=== PATIENT | male | born 1960 | race Caucasian/White ===

== ENCOUNTER 2022-04-10 19:06 | Emergency (ER) | payer SELFPAY ==
[2022-04-10 19:13] VITALS: BP 116/80; PULSE 104; RESP 20; TEMP 36.7; O2SAT 100; BMI 20.9
--- NOTE | 2022-04-10 19:19 | ECG_ITS ---
[facility] Test Date: 2022-04-10 Pat Name: Chandana Live Department: Room: Gender: Male Radio Director: : 1960 Requested By: Mac Madison Order Number: [id number] Vamshi MD: Priscila Taylor M.D. Measurements Intervals [place] Rate: 115 P: 80 HI: 140 QRS: 59 QRSD: 85 T: 68 QT: 331 QTc: 459 Interpretive Statements SINUS TACHYCARDIA RIGHT ATRIAL ENLARGEMENT [0.3mV P-WAVE] LEFT ATRIAL ENLARGEMENT [-0.15mV P-WAVE IN V1/V2] INTERPRETATION BASED ON A DEFAULT AGE OF 40 YEARS No previous ECG available for comparison Electronically Signed On 04-11-2022 21:19:15 CDT by Priscila Taylor M.D. [id number]
--- NOTE | 2022-04-10 19:20 | XRR_ITS ---
PROCEDURE INFORMATION: Exam: XR Chest Exam date and time: 04/10/2022 7:25 PM Age: 61 years old Clinical indication: Pain; Chest pressure; Additional info: Epigastric pain TECHNIQUE: Imaging protocol: Radiologic exam of the chest. Views: 1 view. COMPARISON: No relevant prior studies available. FINDINGS: Lungs: Unremarkable. No consolidation. Pleural spaces: Unremarkable. No pleural effusion. No pneumothorax. Heart/Mediastinum: Unremarkable. No cardiomegaly. Bones/joints: Unremarkable. XR/XR chest 1V portable [id number] IMPRESSION: No acute findings.
--- NOTE | 2022-04-10 19:35 | CTR_ITS ---
PROCEDURE INFORMATION: Exam: CT Abdomen And Pelvis With Contrast Exam date and time: 04/10/2022 7:50 PM Age: 61 years old Clinical indication: Abdominal pain; Epigastric; Additional info: Epigastric pain TECHNIQUE: Imaging protocol: Computed tomography of the abdomen and pelvis with contrast. Radiation optimization: All CT scans at this facility use at least one of these dose optimization techniques: automated exposure control; mA and/or kV adjustment per patient size (includes targeted exams where dose is matched to clinical indication); or iterative reconstruction. Contrast material: OMNI 350; Contrast volume: 100 ml; Contrast route: INTRAVENOUS (IV); COMPARISON: CR (CHEST, ) 04/10/2022 7:25 PM RADIATION DOSE METRICS: Total DLP (mGy-cm): 362.53 FINDINGS: Mediastinal space: Distal esophageal wall thickening suspected perhaps reflecting an esophagitis. Liver: Normal. No mass. Gallbladder and bile ducts: Normal. No calcified stones. No ductal dilation. Pancreas: Normal. No ductal dilation. Spleen: Normal. No splenomegaly. Adrenal glands: Normal. No mass. Kidneys and ureters: Normal. No hydronephrosis. Stomach and bowel: Mildly prominent fluid in the small bowel without dilation may reflect an enteritis. Appendix: No evidence of appendicitis. Intraperitoneal space: Unremarkable. No free air. No significant fluid collection. Vasculature: Unremarkable. No abdominal aortic aneurysm. Lymph nodes: Unremarkable. No enlarged lymph nodes. Urinary bladder: Unremarkable as visualized. Reproductive: Unremarkable as visualized. Bones/joints: Unremarkable. No acute fracture. Soft tissues: Unremarkable. CT/CT abdomen pelvis w con* [id number] IMPRESSION: 1. Distal esophageal wall thickening suspected perhaps reflecting an esophagitis. 2. Mildly prominent fluid in the small bowel without dilation may reflect an enteritis.
[2022-04-10] MEDS: lidocaine 2% viscous 15 ML, aluminum-mag hydrox-simethicon 30 ML, sucralfate oral liq 1 GM PO (19:44)
[2022-04-10] MEDS: iohexol 350 mg/mL 100 mL Btl IV (19:56)
[2022-04-10] MEDS: sodium chloride 0.9% 1,000 ML 999 ML IV (20:04)
[2022-04-10] MEDS: ondansetron 2 mg/ML SDV 2 mL 4 MG IVP ×2 (20:04→22:02)
[2022-04-10 20:15] LABS: Basophils % 0.4 %; Eosinophils # 0.1 10^3/uL (0.0-0.8); Eosinophils % 0.5 %; Hematocrit 51.4 % (42.0-52.0); Hemoglobin 16.6 g/dL (11.7-16.6); Lymphocytes # 1.8 10^3/uL (0.8-4.8); Lymphocytes % 18.4 %; Mean Corpuscular HGB Conc 32.3 g/dL (30.0-36.0); Mean Corpuscular Hemoglobin 29.6 pg (28.0-34.0); Mean Corpuscular Volume 91.6 fl (80-94); Monocytes # 0.6 10^3/uL (0.2-0.9); Monocytes % 6.1 %; Neutrophils # 7.27 10^3/uL (1.8-7.7); Neutrophils % 74.3 %; Nucleated Red Blood Cells % 0 %; Platelet Count 376 10^3/cmm (130-400); Red Blood Count 5.61 10^6/uL (4.1-5.3); Red Cell Distribution Width 12.5 % (12.1-15.1); White Blood Count 9.8 10^3/uL (4.0-10.0)
[2022-04-10 20:19] VITALS: BP 156/88; PULSE 102; RESP 18
[2022-04-10 20:26] VITALS: RESP 20
[2022-04-10] MEDS: morphine 4 mg/mL SDV 1 mL IVP ×2 (20:26→22:02)
--- NOTE | 2022-04-10 20:34 | W.ED.ABDPA2 ---
HPI - Abdominal Pain General: Chief Complaint: Abdominal Pain Stated Complaint: Cp, N/V Time Seen by Provider: 04/10/22 19:23 History of Present Illness: 61-year-old male with a history of gastric ulcer. He presents with 24 hours of epigastric pain, vomiting liquids, and nausea. He notes that there is burning pain in his epigastrium, that worsens and goes up into his chest when he vomits. He has no history of belly surgery. He says that he has continued to vomit even liquids for the past 24 hours or so. He says he is thirsty. He denies any fever. No diarrhea, no black stools, no blood in the vomit MD elicited complaint: abdominal pain Pertinent past history: gastritis Onset (ago): hour(s) (24) Location: Epigastric Quality: stabbing Radiation: epigastric Associated Symptoms: Reports dyspepsia, nausea, poor appetite and vomiting; Denies coffee ground emesis, diarrhea, fever(s), hematemesis and loose stools Review of Systems Const: Denies: fever(s) Eyes: Denies: change in vision ENMT: Denies: throat pain Card: Reports: chest pain (with vomiting); Denies: palpitations Resp: Denies: dyspnea, productive cough, non-productive cough or wheezing GI: Reports: nausea and vomiting; Denies: hematemesis, coffee ground emesis or diarrhea Skin/Breast: Denies: rash Neuro: Denies: headache(s), weakness in extremities, dizziness or confusion Physical Exam Const: GENERAL APPEARANCE: cooperative, anxious and ill appearing (mildly); not comfortable, not frail appearing and not well hydrated HENMT: COMMON NORMALS: normocephalic, atraumatic and Normal external nose present HEAD & SCALP: normocephalic and atraumatic FACE & SINUS: normal facial exam and face symmetric NOSE: Normal external nose present Eye: COMMON NORMALS: Equal, round and reactive pupils present and EOMs intact bilaterally PUPIL: Yes Equal, round and reactive pupils present Neck/C-Spine: GENERAL: Yes trachea midline Chest: CHEST: Yes Symmetrical chest wall rise Resp: COMMON NORMALS: normal respiratory effort, No retractions, No use of accessory muscles and clear to auscultation bilaterally AUSCULTATION: clear to auscultation bilaterally Cardio: COMMON NORMALS: regular rate and regular rhythm RATE: regular rate RHYTHM: regular rhythm GI: COMMON NORMALS: Normal to inspection, nondistended, normoactive bowel sounds present PALPATION: Yes Tenderness to palpation present (GI) (epigastric) Details: RUQ Extremity: COMMON NORMALS: no pedal edema Neuro: ROHITH COMA SCALE: document GCS findings [place] coma scale eye opening: Spontaneous Rohith coma scale verbal response: Orientated Rohith coma scale motor response: Obey commands [place] coma scale total score: 15 SENSORY EXAM: Yes extremities (intact) Psych: COMMON NORMALS: speech normal SPEECH: Yes normal speech Skin: COMMON NORMALS: no rashes or lesions noted GENERAL SKIN EXAM: no rashes or lesions noted Course Vital Signs: Vital signs: Vital Signs Temperature 98.0 F 04/10/22 19:13 Pulse Rate 98 04/10/22 20:51 Respiratory Rate 12 04/10/22 20:51 Blood Pressure 145/86 04/10/22 20:51 Pulse Oximetry 100 04/10/22 19:13 Oxygen Delivery Me thod 04/10/22 20:19 MDM - Abdominal Pain Medical Decision Making Patient's symptoms are improved following administration of GI cocktail morphine and Zofran. He still having some pain. His vitals are stable. Blood pressure 145/86, pulse 98, respirations 12, saturations 100% on room air. Temperature is 98.0. CBC is normal. B UN is very slightly elevated. Otherwise BMP is not remarkable. Urinalysis is not remarkable. Liver enzymes are normal. Lipase is normal at 45. CT of the abdomen and pelvis shows distal esophageal wall thickening indicative of esophagitis consistent with the patient's symptoms. There is mild prominent fluid in the small bowel without dilatation that could be indicative of a mild enteritis. The patient was counseled on his diagnosis of esophagitis, likely the cause of his symptoms. The need for medical treatment and compliance was stressed. And the need for follow-up, possibly with surgery for EGD was stressed as well. He will be treated with proton pump inhibitors, topical treatment with Carafate, and antiemetics with a liquid diet. They know to return for worsening symptoms Lab Data : 04/10/22 19:50 04/10/22 19:50 Labs/Radiology: Radiology Impressions Chest X-Ray 04/10/22 19:20 IMPRESSION: No acute findings. Abdomen/Pelvis CT 04/10/22 19:35 IMPRESSION: 1. Distal esophageal wall thickening suspected perhaps reflecting an esophagitis. 2. Mildly prominent fluid in the small bowel without dilation may reflect an enteritis. Laboratory Results WBC 9.8 10^3/uL (4.0-10.0) 04/10/22 19:50 RBC 5.61 10^6/uL (4.1-5.3) H 04/10/22 19:50 Hgb 16.6 g/dL (11.7-16.6) 04/10/22 19:50 Hct 51.4 % (42.0-52.0) 04/10/22 19:50 MCV 91.6 fl (80-94) 04/10/22 19:50 MCH 29.6 pg (28.0-34.0) 04/10/22 19:50 MCHC 32.3 g/dL (30.0-36.0) 04/10/22 19:50 RDW 12.5 % (12.1-15.1) 04/10/22 19:50 Plt Count 376 10^3/cmm (130-400) 04/10/22 19:50 MPV 10.0 fL (7.4-10.4) 04/10/22 19:50 Neut % (Auto) 74.3 % 04/10/22 19:50 Lymph % (Auto) 18.4 % 04/10/22 19:50 [place] % (Auto) 6.1 % 04/10/22 19:50 Eos % (Auto) 0.5 % 04/10/22 19:50 Baso % (Auto) 0.4 % 04/10/22 19:50 Neut # (Auto) 7.27 10^3/uL (1.8-7.7) 04/10/22 19:50 Lymph # (Auto) 1.8 10^3/uL (0.8-4.8) 04/10/22 19:50 [place] # (Auto) 0.6 10^3/uL (0.2-0.9) 04/10/22 19:50 Eos # (Auto) 0.1 10^3/uL (0.0-0.8) 04/10/22 19:50 Baso # (Auto) 0.0 10^3/uL (0.0-0.1) 04/10/22 19:50 Nucleated RBC % (auto) 0 % 04/10/22 19:50 Nucleated RBCs # 0.0 /100WBC 04/10/22 19:50 Sodium 141 mmol/L (136-145) 04/10/22 19:50 Potassium 4.3 mmol/L (3.5-5.1) 04/10/22 19:50 Chloride 101 mmol/L (98-107) 04/10/22 19:50 Carbon Dioxide 24 mmol/L (22-29) 04/10/22 19:50 Anion Gap 20.3 (5-19) H 04/10/22 19:50 BUN 23 mg/dL (6-20) H 04/10/22 19:50 Creatinine 1.0 mg/dL (0.7-1.2) 04/10/22 19:50 GFR Calculation 76.5 mL/min (90-130) L 04/10/22 19:50 Glucose 81 mg/dL (65-115) 04/10/22 19:50 Calculated Osmolality 295 mOsm/kg (285-295) 04/10/22 19:50 Calcium 9.4 mg/dL (8.5-10.5) 04/10/22 19:50 Total Bilirubin 0.4 mg/dL (0.15-1.2) 04/10/22 19:50 AST 29 U/L (0-40) 04/10/22 19:50 ALT 29 U/L (0-41) 04/10/22 19:50 Alkaline Phosphatase 128 U/L (40-130) 04/10/22 19:50 Troponin T Gen 5 ng/L 6 ng/L (0-15) 04/10/22 19:50 Total Protein 8.3 g/dL (6.6-8.7) 04/10/22 19:50 Albumin 4.5 g/dL (3.5-5.2) 04/10/22 19:50 Globulin 3.8 g/dL (1.3-4.6) 04/10/22 19:50 Lipase 45 U/L (13-60) 04/10/22 19:50 Urine Color Yellow (Yellow) 04/10/22 20:40 Urine Appearance Clear (CLEAR) 04/10/22 20:40 Urine pH 5 (5-7) 04/10/22 20:40 Ur Specific [place] 1.025 (1.005-1.030) 04/10/22 20:40 Urine Protein 1+ (Negative) H 04/10/22 20:40 Urine Glucose (UA) Norm (Normal) 04/10/22 20:40 Urine Ketones 3+ (Negative) H 04/10/22 20:40 Urine Blood Neg (Negative) 04/10/22 20:40 Urine Nitrate Negative (Negative) 04/10/22 20:40 Urine Bilirubin Neg (Negative) 04/10/22 20:40 Urine Urobilinogen Neg mg/dL (Negative) 04/10/22 20:40 Ur Leukocyte Esterase Negative (Negative) 04/10/22 20:40 Urine RBC 0-4 /hpf (0-2) H 04/10/22 20:40 Urine WBC 0-4 /hpf (0-5) H 04/10/22 20:40 Ur Squamous Epith Cells 0-4 /hpf (0-5) H 04/10/22 20:40 Amorphous Sediment Not Reportable 04/10/22 20:40 Urine Bacteria Trace /hpf (NONE) 04/10/22 20:40 Urine Mucus 1+ /hpf 04/10/22 20:40 Discharge Plan Discharge Patient Disposition: Home Clinical Impression: Esophagitis Condition: Stable Prescriptions: New Prevacid 30 mg capsule,delayed release(DR/EC) 30 mg PO DAILY Qty: 30 0RF ondansetron 4 mg film 4 mg PO DAILY PRN (Reason: nausea and vomiting) Qty: 10 0RF sucralfate 1 gram tablet 1 g PO Q6H 28 Days Qty: 112 0RF Discharge Orders: Discharge ED (Routine); Ordered 04/10/22 Ordered By: Kai Luis Referrals: Imtiaz Anglin MD [Physician] - 7-10 days Discharge Diet: Clear Liquid Discharge Activity: Increase activity as tolerated Patient Instructions: Esophagitis (ED), Opioid Safety, Pain Management Activity Restrictions/Additional Instructions: Medication as directed. As we discussed, dissolve the sucralfate pill and water intake at least 30 minutes prior to any liquid or food intake. Use the nausea medication prescribed every 6 hours while awake for the next 24 hours, then as needed. Case management will set up a surgery appointment for you to follow-up. Return for significant amounts of blood in the vomitus, worsening pain or vomiting despite treatment, other concerning symptoms. Coding Level of Care Code ED [employer] for Chg Fwd Exam Comprehensive
[2022-04-10 20:37] LABS: Alanine Aminotransferase 29 U/L (0-41); Albumin Level 4.5 g/dL (3.5-5.2); Alkaline Phosphatase 128 U/L (40-130); Anion Gap 20.3 (5-19); Aspartate Amino Transferase 29 U/L (0-40); Blood Urea Nitrogen 23 mg/dL (6-20); Calcium 9.4 mg/dL (8.5-10.5); Carbon Dioxide 24 mmol/L (22-29); Chloride 101 mmol/L (98-107); Globulin 3.8 g/dL (1.3-4.6); Glomerular Filtration Rate 76.5 mL/min (90-130); Glucose 81 mg/dL (65-115); Lipase 45 U/L (13-60); Osmolality Calculated 295 mOsm/kg (285-295); Potassium 4.3 mmol/L (3.5-5.1); Sodium 141 mmol/L (136-145); Total Bilirubin 0.4 mg/dL (0.15-1.2); Total Protein 8.3 g/dL (6.6-8.7)
[2022-04-10 20:40] LABS: Troponin T (5th) Once 6 ng/L (0-15)
[2022-04-10 20:51] VITALS: BP 145/86; PULSE 98; RESP 12
[2022-04-10 20:59] LABS: Add Urine Microscopic? YES; Bilirubin Urine Neg (Negative); Blood Urine Neg (Negative); Glucose Urine UA Norm (Normal); Ketones Urine 3+ (Negative); Leukocyte Esterase Urine Negative (Negative); Nitrate Urine Negative (Negative); Protein Urine 1+ (Negative); Specific Gravity, Urine 1.025 (1.005-1.030); Urine Appearance Clear (CLEAR); Urine Color Yellow (Yellow); Urobilinogen Urine Neg (Negative); pH Urine 5 (5-7)
[2022-04-10 21:01] LABS: Bacteria Urine TRACE /hpf; Mucus Urine 1+ /hpf; RBC Urine 0-4 /hpf (0-2); Squamous Epithelial Cell Urine 0-4 /hpf (0-5); WBC Urine 0-4 /hpf (0-5)
[2022-04-10 21:02] LABS: Add Urine Culture? No
[2022-04-10 22:02] VITALS: RESP 17
[2022-04-10 22:12] VITALS: BP 153/89; PULSE 86; O2SAT 96
--- NOTE | 2022-04-12 13:43 | DCPLANNER ---
Addendum entered by Dorie Ricketts 04/21/22 12:51: social media sr strategy manager received the following message from the general surgery clinic regarding follow up appointment: returned Ashlie's called in which she left a voicemail requesting a return call at the # noted below. Left message to return call. On Fri 2:20p Apr 15, 2022 Cecilia Li (Covering For: Sorting Supervisor Front Off) Wrote To: Sorting Supervisor Front Off Patient will need to talk to FA prior to scheduling procedure. self pay 100 payment towards total bill Left message 04/15 On Wed 9:05a Apr 13, 2022 Norberto Alberts (Covering For: Sorting Supervisor Front Off) Wrote To: Sorting Supervisor Front Off left message 04/13 Original Note: social media sr strategy manager had message to schedule a follow up appointment for patient with general surgery. social media sr strategy manager sent patients information to the front office staff at general surgery. Patients information will be printed and reviewed. Clinic will call patient with appointment information.
== END 2022-04-10 22:16 | disposition home or self-care (01) ==
PROVIDERS: Emergency Medicine; Emergency Provider Emergency Medicine
DX: K20.90 Esophagitis, unspecified without bleeding (principal)
CPT/HCPCS: 71045; 74177; 80053; 81001; 83690; 84484; 85025; 93005; 96361; 96374; 96375; 96376; 99285; J2270; J2405; J7030; Q9967

== ENCOUNTER 2022-05-29 04:56 | Emergency (ER) | payer MEDICAID, SELFPAY ==
[2022-05-29 05:03] VITALS: BP 159/98; PULSE 97; RESP 23; TEMP 36.6; BMI 21.6
--- NOTE | 2022-05-29 05:08 | CTR_ITS ---
PROCEDURE INFORMATION: Exam: CT Abdomen And Pelvis With Contrast Exam date and time: 05/29/2022 5:52 AM Age: 61 years old Clinical indication: Abdominal pain; Generalized; Additional info: Abd pain TECHNIQUE: Imaging protocol: Computed tomography of the abdomen and pelvis with contrast. Radiation optimization: All CT scans at this facility use at least one of these dose optimization techniques: automated exposure control; mA and/or kV adjustment per patient size (includes targeted exams where dose is matched to clinical indication); or iterative reconstruction. Contrast material: OMNI 350; Contrast volume: 100 ml; Contrast route: INTRAVENOUS (IV); COMPARISON: CT abdomen pelvis w con* [id number] 04/10/2022 7:50 PM RADIATION DOSE METRICS: Total DLP (mGy-cm): 364.68 FINDINGS: Lungs: No consolidation in the visualized lung bases. Mediastinal space: There is redemonstration of the soft tissue density and wall thickening of the distal esophagus, minimally changed from the comparison study. Diaphragm: There is a small sliding hiatal hernia. Liver: No hepatomegaly. There are no enhancing liver masses. Gallbladder and bile ducts: No calcified stones. No ductal dilation. Pancreas: Normal in size and homogeneous enhancement. No ductal dilation. Spleen: Normal. No splenomegaly. Adrenal glands: Normal. No mass. Kidneys and ureters: There is no hydronephrosis. No renal or ureteral calculi are identified. In the posterior interpolar region of the left kidney, there is a 4 x 7 mm hypodensity, too small to characterize but likely a cyst. Stomach and bowel: The stomach is mildly distended by fluid. There is thickening of the gastric wall as may be seen in gastritis or underdistension. There are multiple fluid-filled loops of small bowel with fluid entering the cecum, without significant distention or evidence of obstruction. There is moderate fecal burden throughout the colon. Appendix: No evidence of appendicitis. Intraperitoneal space: No free air. No significant fluid collection. Vasculature: There is no abdominal aortic aneurysm. Lymph nodes: No enlarged retroperitoneal or mesenteric lymph nodes. Urinary bladder: The bladder shows a normal contour and is free of calcific opacities. Reproductive: The prostate measures 5 cm in transverse dimension. Bones/joints: No acute fracture. Soft tissues: Normal. CT/CT abdomen pelvis w con* [id number] IMPRESSION: 1. Soft tissue density in the distal esophagus concerning for esophagitis or a distal esophageal mass. Endoscopy may be helpful for further characterization. 2. Findings consistent with gastroenteritis. Bowel underdistension may present a similar picture. 3. Enlarged prostate. Findings were discussed with Dr. Ackerman at 05/29/2022 7:14 AM HEAD OF RESEARCH & INSIGHTS. COMMENTS: Consistent with the [employer] [employer]'s Incidental Findings Committee white paper (J Am Britta Radiol 2018): Any incidental renal lesion less than 1 cm or classified as too small to characterize, or any incidental cystic renal lesion characterized as simple-appearing, is likely benign. No follow-up imaging is recommended for these lesions per consensus recommendations based on imaging criteria.
--- NOTE | 2022-05-29 05:08 | XRR_ITS ---
PROCEDURE INFORMATION: Exam: XR Chest Exam date and time: 05/29/2022 6:16 AM Age: 61 years old Clinical indication: Pain; Chest pressure; Additional info: Cp TECHNIQUE: Imaging protocol: Radiologic exam of the chest. Views: 1 view. COMPARISON: CR XR chest 1V portable [id number] 04/10/2022 7:25 PM FINDINGS: Tubes, catheters and devices: EKG monitoring leads overlie the thoracic wall. Lungs: There is mild pulmonary hyperexpansion. There is no evidence of focal pulmonary consolidation. Pleural spaces: No pleural effusion or pneumothorax. Heart/Mediastinum: Normal in size. Bones/joints: No acute fracture is identified. XR/XR chest 1V portable [id number] IMPRESSION: 1. Mild pulmonary hyperexpansion. 2. No other acute findings.
--- NOTE | 2022-05-29 05:12 | W.ED.ABDPA2 ---
Documented by User: Isabela Iraheta MD 05/29/22 05:15 HPI - Abdominal Pain General: Chief Complaint: Abdominal Pain Stated Complaint: n/v Time Seen by Provider: 05/29/22 04:57 Source: patient Mode of arrival: ambulatory Limitations: no limitations History of Present Illness: 61-year-old male states that he has been having epigastric abdominal pain over the last night. He states been severe in nature he is also having some chest pain states it is very sharp he states he had this roughly a month ago and was told that he had esophagitis he is never followed up with anybody he does not take any antacids or PPIs. Denies any worsening proving factors states pain is currently 9 out of 10 Associated Symptoms: Reports nausea and vomiting; Denies chills, dysuria and fever(s) Review of Systems Const: Denies: fever(s), chills, body aches or change in appetite Eyes: Denies: blurry vision or eye discomfort ENMT: Denies: throat pain or dental pain Card: Reports: chest pain Resp: Denies: dyspnea GI: Reports: abdominal pain, nausea and vomiting : Denies: dysuria Musc: Denies: neck pain or back pain Skin/Breast: Denies: rash Neuro: Denies: headache(s) Psych: Denies: depression Otoniel/Lymph: Denies: easy bruising All/Imm: Denies: urticaria PFSH ED PFSH: Medical History (Updated 05/29/22 @ 07:19 by Herb Ackerman DO) No pertinent past medical history Social History (Updated 05/29/22 @ 05:12 by Isabela Iraheta MD) Substance/Drug Use: unknown Physical Exam Const: COMMON NORMALS: no acute distress, patient oriented x3 and healthy appearing HENMT: COMMON NORMALS: normocephalic and atraumatic HEAD & SCALP: normocephalic and atraumatic Eye: COMMON NORMALS: Equal, round and reactive pupils present and EOMs intact bilaterally PUPIL: Yes Equal, round and reactive pupils present Neck/C-Spine: COMMON NORMALS: full ROM and supple Chest: COMMONS NORMALS: normal inspection of the chest and normal palpation of entire chest wall Resp: COMMON NORMALS: normal respiratory effort, No retractions, No use of accessory muscles and clear to auscultation bilaterally AUSCULTATION: clear to auscultation bilaterally Cardio: COMMON NORMALS: regular rate, regular rhythm and No murmurs present (Cardio) RATE: regular rate RHYTHM: regular rhythm GI: COMMON NORMALS: Normal to inspection, nondistended, normoactive bowel sounds present, Soft to palpation, non-tender and no masses PALPATION: Yes Soft to palpation Extremity: COMMON NORMALS: normal to inspection and full ROM Neuro: COMMON NORMALS: patient oriented x3, moves all extremities and no focal motor deficits Psych: COMMON NORMALS: mental status grossly normal, Normal thought process present and cooperative THOUGHT PROCESS: Normal thought process present Skin: COMMON NORMALS: no rashes or lesions noted and no wounds GENERAL SKIN EXAM: no rashes or lesions noted Course Vital Signs: Vital signs: Vital Signs Temperature 97.8 F 05/29/22 05:03 Pulse Rate 77 05/29/22 07:13 Respiratory Rate 14 05/29/22 07:13 Blood Pressure 127/77 05/29/22 07:13 Pulse Oximetry 94 05/29/22 05:20 MDM - Abdominal Pain Lab Data 05/29/22 05:15 05/29/22 05:15 Labs/Radiology: Radiology Impressions Abdomen/Pelvis CT 05/29/22 05:08 IMPRESSION: 1. Soft tissue density in the distal esophagus concerning for esophagitis or a distal esophageal mass. Endoscopy may be helpful for further characterization. 2. Findings consistent with gastroenteritis. Bowel underdistension may present a similar picture. 3. Enlarged prostate. Findings were discussed with Dr. 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 COMMENTS: Consistent with the [place] [employer]'s Incidental Findings Committee white paper (J Am Britta Radiol 2018): Any incidental renal lesion less than 1 cm or classified as too small to characterize, or any incidental cystic renal lesion characterized as simple-appearing, is likely benign. No follow-up imaging is recommended for these lesions per consensus recommendations based on imaging criteria. Chest X-Ray 05/29/22 05:08 IMPRESSION: 1. Mild pulmonary hyperexpansion. 2. No other acute findings. Laboratory Results WBC 9.7 10^3/uL (4.0-10.0) 05/29/22 05:15 RBC 5.15 10^6/uL (4.1-5.3) 05/29/22 05:15 Hgb 15.2 g/dL (11.7-16.6) 05/29/22 05:15 Hct 46.1 % (42.0-52.0) 05/29/22 05:15 MCV 89.5 fl (80-94) 05/29/22 05:15 MCH 29.5 pg (28.0-34.0) 05/29/22 05:15 MCHC 33.0 g/dL (30.0-36.0) 05/29/22 05:15 RDW 12.1 % (12.1-15.1) 05/29/22 05:15 Plt Count 372 10^3/cmm (130-400) 05/29/22 05:15 MPV 9.2 fL (7.4-10.4) 05/29/22 05:15 Neut % (Auto) 66.6 % 05/29/22 05:15 Lymph % (Auto) 22.1 % 05/29/22 05:15 [place] % (Auto) 8.2 % 05/29/22 05:15 Eos % (Auto) 2.4 % 05/29/22 05:15 Baso % (Auto) 0.5 % 05/29/22 05:15 Neut # (Auto) 6.43 10^3/uL (1.8-7.7) 05/29/22 05:15 Lymph # (Auto) 2.1 10^3/uL (0.8-4.8) 05/29/22 05:15 [place] # (Auto) 0.8 10^3/uL (0.2-0.9) 05/29/22 05:15 Eos # (Auto) 0.2 10^3/uL (0.0-0.8) 05/29/22 05:15 Baso # (Auto) 0.1 10^3/uL (0.0-0.1) 05/29/22 05:15 Nucleated RBC % (auto) 0 % 05/29/22 05:15 Nucleated RBCs # 0.0 /100WBC 05/29/22 05:15 Sodium 133 mmol/L (136-145) L 05/29/22 05:15 Potassium 3.9 mmol/L (3.5-5.1) 05/29/22 05:15 Chloride 97 mmol/L (98-107) L 05/29/22 05:15 Carbon Dioxide 25 mmol/L (22-29) 05/29/22 05:15 Anion Gap 14.9 (5-19) 05/29/22 05:15 BUN 24 mg/dL (6-20) H 05/29/22 05:15 Creatinine 0.9 mg/dL (0.7-1.2) 05/29/22 05:15 GFR Calculation 86.4 mL/min (90-130) L 05/29/22 05:15 Glucose 103 mg/dL (65-115) 05/29/22 05:15 Calculated Osmolality 280 mOsm/kg (285-295) L 05/29/22 05:15 Calcium 9.7 mg/dL (8.5-10.5) 05/29/22 05:15 Total Bilirubin 0.4 mg/dL (0.15-1.2) 05/29/22 05:15 AST 33 U/L (0-40) 05/29/22 05:15 ALT 30 U/L (0-41) 05/29/22 05:15 Alkaline Phosphatase 122 U/L (40-130) 05/29/22 05:15 Troponin T Baseline 7 ng/L (0-15) 05/29/22 05:15 Total Protein 7.5 g/dL (6.6-8.7) 05/29/22 05:15 Albumin 4.4 g/dL (3.5-5.2) 05/29/22 05:15 Globulin 3.1 g/dL (1.3-4.6) 05/29/22 05:15 Lipase 26 U/L (13-60) 05/29/22 05:15 Urine Color Yellow (Yellow) 05/29/22 06:23 Urine Appearance Clear (CLEAR) 05/29/22 06:23 Urine pH 7 (5-7) 05/29/22 06:23 Ur Specific [place] 1.010 (1.005-1.030) 05/29/22 06:23 Urine Protein Neg (Negative) 05/29/22 06:23 Urine Glucose (UA) Norm (Normal) 05/29/22 06:23 Urine Ketones 2+ (Negative) H 05/29/22 06:23 Urine Blood Neg (Negative) 05/29/22 06:23 Urine Nitrate Negative (Negative) 05/29/22 06:23 Urine Bilirubin Neg (Negative) 05/29/22 06:23 Urine Urobilinogen Norm mg/dL (Negative) 05/29/22 06:23 Ur Leukocyte Esterase Negative (Negative) 05/29/22 06:23 Discharge Plan Discharge Patient Disposition: Home Clinical Impression: Esophagitis, Gastroenteritis, Esophageal mass Prescriptions: New pantoprazole 40 mg tablet,delayed release (DR/EC) 40 mg PO BID 14 Days Qty: 28 0RF promethazine 25 mg tablet 25 mg PO Q6H PRN (Reason: nausea and vomiting) Qty: 20 0RF Discontinued lansoprazole [Prevacid] 30 mg capsule,delayed release(DR/EC) 30 mg PO DAILY Qty: 30 0RF No Action ondansetron 4 mg film 4 mg PO DAILY PRN (Reason: nausea and vomiting) Qty: 10 0RF Discharge Orders: Discharge ED (Routine); Ordered 05/29/22 Ordered By: Herb Ackerman Discharge Diet: Clear Liquid Discharge Activity: Resume usual activity Patient Instructions: Opioid Safety, Pain Management Activity Restrictions/Additional Instructions: You were seen today for abdominal discomfort. You have significant amount of enteritis (inflammation of the colon). Additionally there is signs of inflammation around the distal esophagus and a questionable area of thickening. You should have any EGD (scope of the stomach). Case management will make arrangements for you to see surgery to have this test. In the interim we will change her to pantoprazole 40 mg twice daily. Recommend clear liquid diet for 24 to 48 hours and advance as tolerated. Coding Level of Care Code ED Pupil Personnel Services Director for Chg Fwd Exam Comprehensive Documented by User: Herb Ackerman DO 05/29/22 08:00 HPI - Abdominal Pain General: Chief Complaint: Abdominal Pain Stated Complaint: n/v Time Seen by Provider: 05/29/22 04:57 PFS ED PFSH: Medical History (Updated 05/29/22 @ 07:19 by Herb Ackerman DO) No pertinent past medical history Social History (Updated 05/29/22 @ 05:12 by Isabela Iraheta MD) Substance/Drug Use: unknown Course Vital Signs: Vital signs: Vital Signs Temperature 97.8 F 05/29/22 05:03 Pulse Rate 77 05/29/22 07:13 Respiratory Rate 14 05/29/22 07:13 Blood Pressure 127/77 05/29/22 07:13 Pulse Oximetry 94 05/29/22 05:20 MDM - Abdominal Pain Medical Decision Making Care assumed at change of shift. 3+ ketones. IV fluids ordered. Anion gap normal. Reviewed CT he has some enteritis he has some thickening his distal esophagus as well could be from esophagitis there is a concern of a possible mass according to the radiologist we will discharge him home on pantoprazole 40 twice daily promethazine to use as needed and set him up for an outpatient EGD with surgery. Encourage clear liquid diet for next 24 to 48 hours. Medical Records I reviewed the patient's medical records. Lab Data I reviewed the patient's lab results. 05/29/22 05:15 05/29/22 05:15 Labs/Radiology: Radiology Impressions Abdomen/Pelvis CT 05/29/22 05:08 IMPRESSION: 1. Soft tissue density in the distal esophagus concerning for esophagitis or a distal esophageal mass. Endoscopy may be helpful for further characterization. 2. Findings consistent with gastroenteritis. Bowel underdistension may present a similar picture. 3. Enlarged prostate. Findings were discussed with Dr. 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 COMMENTS: Consistent with the [place] [employer]'s Incidental Findings Committee white paper (J Am Britta Radiol 2018): Any incidental renal lesion less than 1 cm or classified as too small to characterize, or any incidental cystic renal lesion characterized as simple-appearing, is likely benign. No follow-up imaging is recommended for these lesions per consensus recommendations based on imaging criteria. Chest X-Ray 05/29/22 05:08
[2022-05-29 05:19] LABS: Basophils # 0.1 10^3/uL (0.0-0.1); Basophils % 0.5 %; Eosinophils # 0.2 10^3/uL (0.0-0.8); Eosinophils % 2.4 %; Hematocrit 46.1 % (42.0-52.0); Hemoglobin 15.2 g/dL (11.7-16.6); Lymphocytes # 2.1 10^3/uL (0.8-4.8); Lymphocytes % 22.1 %; Mean Corpuscular Hemoglobin 29.5 pg (28.0-34.0); Mean Corpuscular Volume 89.5 fl (80-94); Mean Platelet Volume 9.2 fL (7.4-10.4); Monocytes # 0.8 10^3/uL (0.2-0.9); Monocytes % 8.2 %; Neutrophils # 6.43 10^3/uL (1.8-7.7); Neutrophils % 66.6 %; Nucleated Red Blood Cells % 0 %; Platelet Count 372 10^3/cmm (130-400); Red Blood Count 5.15 10^6/uL (4.1-5.3); Red Cell Distribution Width 12.1 % (12.1-15.1); White Blood Count 9.7 10^3/uL (4.0-10.0)
[2022-05-29] MEDS: ondansetron 2 mg/ML SDV 2 mL 4 MG IVP (05:19)
[2022-05-29 05:20] VITALS: RESP 22; O2SAT 94
[2022-05-29] MEDS: HYDROmorphone 1 mg/mL INJ 1 mL IVP (05:20)
--- NOTE | 2022-05-29 05:24 | ECG_ITS ---
[facility] Test Date: 2022-05-29 Pat Name: Chandana Live Department: Room: Gender: Male Assistant Track Coach: : 1960 Requested By: Isabela Iraheta Order Number: [id number] Vamshi MD: Priscila Taylor M.D. Measurements Intervals [place] Rate: 94 P: 73 HI: 136 QRS: 13 QRSD: 88 T: 45 QT: 367 QTc: 460 Interpretive Statements SINUS RHYTHM LEFT ATRIAL ENLARGEMENT [-0.15mV P-WAVE IN V1/V2] SEPTAL MYOCARDIAL INFARCTION , OF INDETERMINATE AGE [40+ ms Q WAVE IN V1/V2] Compared to ECG 04/10/2022 19:19:05 Myocardial infarct finding now present Sinus tachycardia no longer present Electronically Signed On 05-30-2022 13:53:37 [employer] by Priscila Taylor M.D. [id number]
[2022-05-29] MEDS: lidocaine 2% viscous 15 ML, aluminum-mag hydrox-simethicon 30 ML, sucralfate oral liq 1 GM PO (05:28)
[2022-05-29 05:45] LABS: Troponin(5th) Baseline 7 ng/L (0-15)
[2022-05-29 05:48] LABS: Alanine Aminotransferase 30 U/L (0-41); Albumin Level 4.4 g/dL (3.5-5.2); Alkaline Phosphatase 122 U/L (40-130); Aspartate Amino Transferase 33 U/L (0-40); Blood Urea Nitrogen 24 mg/dL (6-20); Calcium 9.7 mg/dL (8.5-10.5); Carbon Dioxide 25 mmol/L (22-29); Chloride 97 mmol/L (98-107); Creatinine Clr Calc Pharmacy 91.6285; Globulin 3.1 g/dL (1.3-4.6); Glomerular Filtration Rate 86.4 mL/min (90-130); Glucose 103 mg/dL (65-115); Lipase 26 U/L (13-60); Osmolality Calculated 280 mOsm/kg (285-295); Sodium 133 mmol/L (136-145); Total Bilirubin 0.4 mg/dL (0.15-1.2); Total Protein 7.5 g/dL (6.6-8.7)
[2022-05-29] MEDS: iohexol 350 mg/mL 500 mL Btl (per mL) IV (05:55)
[2022-05-29 06:00] LABS: Anion Gap 14.9 (5-19); Potassium 3.9 mmol/L (3.5-5.1)
[2022-05-29 06:28] VITALS: BP 142/80; PULSE 87; RESP 14
[2022-05-29 06:32] LABS: Add Urine Microscopic? NO; Charge for UA Resulting for Rev
[2022-05-29 06:44] LABS: Bilirubin Urine Neg (Negative); Blood Urine Neg (Negative); Glucose Urine UA Norm (Normal); Ketones Urine 2+ (Negative); Leukocyte Esterase Urine Negative (Negative); Nitrate Urine Negative (Negative); Protein Urine Neg (Negative); Urine Appearance Clear (CLEAR); Urine Color Yellow (Yellow); Urobilinogen Urine Norm (Negative); pH Urine 7 (5-7)
[2022-05-29 07:13] VITALS: BP 127/77; PULSE 77; RESP 14
[2022-05-29] MEDS: sodium chloride 0.9% 1,000 ML 999 ML IV (07:15)
[2022-05-29] MEDS: promethazine 25 mg/mL SDV 1 mL IM (07:57)
[2022-05-29 08:00] VITALS: BP 141/81; PULSE 82; RESP 13; O2SAT 98
== END 2022-05-29 08:00 | disposition home or self-care (01) ==
PROVIDERS: Emergency Medicine; Emergency Provider Family Medicine
DX: K20.90 Esophagitis, unspecified without bleeding (principal); K52.9 Noninfective gastroenteritis and colitis, unspecified; K22.9 Disease of esophagus, unspecified
CPT/HCPCS: 36415; 71045; 74177; 80053; 81003; 83690; 84484; 85025; 93005; 96361; 96372; 96374; 96375; 99285; J1170; J2405; J2550; J7030; Q9967

== ENCOUNTER → 2023-01-21 15:00 | Outpatient (BNVA) | payer MEDICAID, SELFPAY | PROVIDERS: Visit Provider Nurse Practitioner Family | DX: N49.2 Inflammatory disorders of scrotum (principal) | CPT/HCPCS: 87070; 87077; 87184 ==

== ENCOUNTER 2023-07-30 17:32 | Emergency (ER) | payer MEDICAID, SELFPAY ==
[2023-07-30 17:34] VITALS: BP 130/88; PULSE 117; RESP 22; TEMP 36.9; O2SAT 95; BMI 21.6
[2023-07-30 17:39] VITALS: PULSE 107; RESP 21; O2SAT 98
--- NOTE | 2023-07-30 17:40 | XRR_ITS ---
PROCEDURE INFORMATION: Exam: XR Right Hand Exam date and time: 07/30/2023 5:41 PM Age: 63 years old Clinical indication: Hand and wrist; Right; Patient HX: RT hand pain/swelling after wood chopping accident; Puncture wound to base of RT 3rd/4th digit; Possible foreign body TECHNIQUE: Imaging protocol: Radiologic exam of the right hand. Views: 3 or more views. COMPARISON: No relevant prior studies available. FINDINGS: Bones/joints: Mild primary degenerative changes at the 1st CMC joint on the right hand. No acute fracture. No dislocation. Normal bone mineralization. Mild soft tissue swelling between the 3rd and 4th proximal phalanges. Soft tissues: No radiopaque foreign body. XR/XR hand RT min 3V* [id number] IMPRESSION: 1. No acute fracture of the right hand. Followup radiographs recommended in 7-14 days if clinical concern for fracture persists. 2. Mild soft tissue swelling between the 3rd and 4th proximal phalanges.
--- NOTE | 2023-07-30 18:04 | ED_ITS ---
HPI - Extremity Problem General: Chief complaint: Extremity Injury, Upper Stated complaint: Tree fell on hand Time Seen by Provider: 07/30/23 17:40 History of Present Illness: Patient presents to the ER complaining of right hand pain. Patient was out cutting wood and a tree fell and smashed his right hand. Hand is swollen and is painful to move. Patient allergic to any medications. Patient feels good cap refill. Review of Systems General: Reports: 10 or more systems reviewed and unremarkable except in HPI and below PFSH ED PFSH: Medical History No pertinent past medical history Social History Substance/Drug Use: unknown Physical Exam Const: COMMON NORMALS: no acute distress, average body habitus, patient oriented x3, no limitations, healthy appearing, alert and well nourished HENMT: COMMON NORMALS: normocephalic, atraumatic, hearing grossly normal bilaterally, external ears normal, EAC's normal, Normal external nose present, moist oral mucous membranes and oropharynx normal HEAD & SCALP: normocephalic and atraumatic NOSE: Normal external nose present EXTERNAL EAR: Yes external ears normal EXTERNAL AUDITORY CANAL: EAC's normal Neck/C-Spine: COMMON NORMALS: full ROM, no lymphadenopathy, supple, no meningeal signs, no JVD and Thyroid normal THYROID: Thyroid normal Chest: COMMONS NORMALS: normal inspection of the chest and normal palpation of entire chest wall Resp: COMMON NORMALS: normal respiratory effort, No retractions, No use of accessory muscles and clear to auscultation bilaterally AUSCULTATION: clear to auscultation bilaterally Cardio: COMMON NORMALS: no JVD, regular rate, regular rhythm, S1 normal heart sound present, S2 normal heart sound present, No gallops present (Cardio), No clicks present (Cardio), No murmurs present (Cardio) and No rub (Cardio) RATE: regular rate RHYTHM: regular rhythm HEART SOUNDS: S1 normal heart sound present and S2 normal heart sound present GI: COMMON NORMALS: Normal to inspection, nondistended, normoactive bowel sounds present, Soft to palpation, non-tender, No hepatosplenomegaly present and no masses PALPATION: Yes Soft to palpation and Yes No hepatosplenomegaly present Extremity: NARRATIVE EXTREMITY EXAM: Right hand swollen very tender to palpate limited range of motion secondary to pain. Cap refill less than 3 seconds. Neuro: COMMON NORMALS: patient oriented x3 SENSORIUM/ORIENTATION: Yes alert MENINGEAL SIGNS: Yes no meningeal signs Course Vital Signs: Vital signs: Vital Signs Temperature 98.5 F 07/30/23 19:13 Pulse Rate 88 07/30/23 19:13 Respiratory Rate 21 H 07/30/23 19:13 Blood Pressure 147/88 07/30/23 19:13 Pulse Oximetry 96 07/30/23 19:13 Oxygen Delivery Me thod Room Air 07/30/23 18:30 MDM - Extremity (Nontraumatic) Medical Decision Making Patient was given 4 mg of morphine and 4 mg of Zofran IM which reduced the patient's pain to an acceptable level. X-rays was obtained which showed no acute fracture of the right hand. Patient be placed in a wrist splint and d ischarged home with hydrocodone 5 mg #2 to go home on and use tonight 1 p.o. every 4 hours as needed and a prescription for more. Patient should follow-up with his family practice physician within the next 7 days for further evaluation and treatment. Differential Diagnosis Unlikely herpes zoster, gout, cellulitis, superficial thrombophlebitis, deep venous thrombosis of upper extremity, lower extremity edema or deep vein thrombosis of lower extremity Medical Records I reviewed the patient's medical records. Lab Data I reviewed the patient's lab results. Radiology Impressions Hand X-Ray 07/30/23 17:40 IMPRESSION: 1. No acute fracture of the right hand. Followup radiographs recommended in 7-14 days if clinical concern for fracture persists. 2. Mild soft tissue swelling between the 3rd and 4th proximal phalanges. All radiology interpretation(s) finalized by discharge Discharge Plan Discharge Patient Disposition: Home Clinical Impression: Hand pain, right Contusion of hand Qualifiers: Encounter type: initial encounter Laterality: right Qualified Code(s): S60.221A - Contusion of right hand, initial encounter Condition: Stable Prescriptions: New hydrocodone-acetaminophen 5-325 mg tablet 1 tab PO Q6H PRN (Reason: pain) Qty: 14 0RF meloxicam 7.5 mg tablet 7.5 mg PO .Twice daily Qty: 14 0RF No Action sulfamethoxazole-trimethoprim [Bactrim DS] 800-160 mg tablet 1 tab PO BID 10 Days Qty: 20 0RF Discharge Orders: Discharge ED (Routine); Ordered 07/30/23 Ordered By: Nestor Gutierrez Referrals: Ramon Adams MD [Primary Care Provider] - 1 week Patient Instructions: Contusion, Opioid Safety, Pain Management Activity Restrictions/Additional Instructions: Please take all pain medicine as directed. Please watch for swelling. Please make sure you have good circulation and sensation in your fingers. If it starts throbbing please hold your arm above your head as this will reduce the blood flow to it and reduce this throbbing. Otherwise please follow-up with your family practice physician within the next 7 to 10 days for further evaluation and treatment as needed. Coding Level of Care Code ED Lead [employer]man [employer] for Kaylen Sullivan
[2023-07-30 18:09] VITALS: RESP 22; O2SAT 96
[2023-07-30] MEDS: ondansetron 2 mg/ML SDV 2 mL 4 MG IM (18:09)
[2023-07-30] MEDS: morphine 4 mg/mL SDV 1 mL IM (18:09)
[2023-07-30 18:15] VITALS: BP 133/81; PULSE 103; RESP 21; O2SAT 93
[2023-07-30 18:30] VITALS: BP 147/88; PULSE 88; O2SAT 96
--- NOTE | 2023-07-30 18:52 | PC.NURSE ---
financial writer gave del sepulveda report at 1850.
[2023-07-30 19:13] VITALS: BP 147/88; PULSE 88; RESP 21; TEMP 36.9; O2SAT 96
== END 2023-07-30 19:15 | disposition home or self-care (01) ==
PROVIDERS: Emergency Provider Emergency Medicine; PCP Family Medicine
DX: S60.221A Contusion of right hand, initial encounter (principal); M79.641 Pain in right hand; W20.8XXA Other cause of strike by thrown, projected or falling object, initial encounter
CPT/HCPCS: 73130; 96372; 99284; J2270; J2405